=== PATIENT | female | born 1990 | race African-American/Black ===

== ENCOUNTER 2024-08-04 21:46 | Emergency (ER) | payer MEDICAID ==
[~2024-08-04] VITALS: Ht 162.6 cm; Wt 112.0 kg
[2024-08-04 22:28] VITALS: O2SAT 100
[2024-08-05 00:28] LABS: BASOPHILS % 0.6 % (0.0-2.0); DIFFERENTIAL COMMENT 0; EOSINOPHILS % 3.6 % (0.0-5.0); HEMATOCRIT. 34.5 % (36.0-48.0); LYMPHOCYTES % 31.3 % (20.0-50.0); MEAN CORPUSCULAR HEMOGLOBIN 22.8 pg (28.0-32.0); MEAN CORPUSCULAR HGB CONC 31.9 g/dL (31.0-37.0); MEAN CORPUSCULAR VOLUME 71.4 fL (81.0-99.0); MEAN PLATELET VOLUME 7.4 fl (7.4-10.4); MONOCYTES % 13.7 % (2.0-8.0); NEUTROPHILS % 50.8 % (40.0-76.0); PLATELET 231 x1000/uL (130-400); RED BLOOD CELL COUNT 4.83 mill/uL (4.2-5.4); WHITE BLOOD COUNT 4.4 x1000/uL (4.5-11.0)
[2024-08-05 00:40] LABS: CHLORIDE 109 mEq/L (98-107); POTASSIUM 3.8 mEq/L (3.5-5.1); SODIUM 141 mEq/L (136-145)
[2024-08-05 00:41] LABS: CALCIUM 9.3 mg/dL (8.7-10.4); CARBON DIOXIDE 28 mEq/L (21-32)
[2024-08-05 00:46] LABS: CREATININE 0.9 mg/dL (0.6-1.0); GLUCOSE 88 mg/dL (70-105); UREA NITROGEN BLOOD 7 mg/dL (9-23)
[2024-08-05] MEDS: ACETAMINOPHEN 325MG TABLET PO ONE (01:15)
[2024-08-05] MEDS: ONDANSETRON HCL 4MG TABLET PO ONE (01:15)
[2024-08-05 01:35] LABS: ALANINE AMINOTRANSFERASE 22 IU/L (10-49); ALBUMIN 4.2 g/dL (3.2-4.8); ASPARTATE AMINOTRANSFERASE 24 IU/L (<34); BILIRUBIN TOTAL 0.2 mg/dL (0.1-1.0); PROTEIN TOTAL 7.1 g/dL (6.0-8.3)
[2024-08-05 01:39] LABS: BILIRUBIN DIRECT < 0.1 mg/dL (<=3.0)
[2024-08-05] MEDS ORDERED: FAMO-135 MT (02:48)
[2024-08-05 02:50] LABS: CLARITY URINE CLEAR (CLEAR); COLOR URINE YELLOW (YELLOW); GLUCOSE URINE NEGATIVE (NEGATIVE); KETONES URINE NEGATIVE (NEGATIVE); LEUKOCYTE ESTERASE URINE NEGATIVE (NEGATIVE); NITRITE URINE NEGATIVE (NEGATIVE); OCCULT BLOOD URINE NEGATIVE (NEGATIVE); PROTEIN URINE NEGATIVE (NEGATIVE); SPECIFIC GRAVITY URINE 1.024 (1.005-1.030); UROBILINOGEN URINE 0.2 E.U./dL (0.2-1.0)
[2024-08-05 03:07] VITALS: BP 127/88; PULSE 67; RESP 18; TEMP 37.00296; O2SAT 100
== END 2024-08-05 03:09 | disposition home or self-care (01) ==
LOC: ER 21:46
DX: K29.70 Gastritis, unspecified, without bleeding (principal)
CPT/HCPCS: 99283; 80076; 80048; 81025; 85025; 36415; 81003; Q0162

== ENCOUNTER 2024-12-11 16:44 | Emergency (ER) | payer MEDICAID, OTHER ==
[~2024-12-11] VITALS: Ht 162.6 cm; Wt 132.0 kg
[~2024-12-11 16:44] MED LIST: FAMO-135 MT
[2024-12-11 16:45] VITALS: O2SAT 100
[2024-12-11 16:49] VITALS: BP 158/101; RESP 18; TEMP 37; O2SAT 99
[2024-12-11 18:32] VITALS: PULSE 102
== END 2024-12-11 18:42 | disposition home or self-care (01) ==
LOC: ER 16:44
DX: H92.02 Otalgia, left ear (principal); H91.92 Unspecified hearing loss, left ear
CPT/HCPCS: 99282

== ENCOUNTER 2025-08-01 13:44 | Emergency (ER) | payer MEDICAID ==
[~2025-08-01] VITALS: Ht 172.7 cm; Wt 110.0 kg
[2025-08-01 13:51] VITALS: O2SAT 100
[2025-08-01 17:02] LABS: CLARITY URINE CLEAR (CLEAR); COLOR URINE YELLOW (YELLOW); GLUCOSE URINE NEGATIVE (NEGATIVE); KETONES URINE NEGATIVE (NEGATIVE); LEUKOCYTE ESTERASE URINE NEGATIVE (NEGATIVE); NITRITE URINE NEGATIVE (NEGATIVE); OCCULT BLOOD URINE NEGATIVE (NEGATIVE); PH URINE 5.5 (4.5-8.0); PROTEIN URINE NEGATIVE (NEGATIVE); SPECIFIC GRAVITY URINE 1.020 (1.005-1.030); UROBILINOGEN URINE 0.2 E.U./dL (0.2-1.0)
[2025-08-01 17:11] LABS: *AMPHETAMINES SCREEN URINE NEGATIVE (NEGATIVE); *BARBITURATES SCREEN URINE NEGATIVE (NEGATIVE); *BENZODIAZEPINES SCREEN URINE NEGATIVE (NEGATIVE); *COCAINE SCREEN URINE NEGATIVE (NEGATIVE); METHADONE URINE SCREEN NEGATIVE (NEGATIVE); OPIATES URINE SCREEN NEGATIVE (NEGATIVE); PHENCYCLIDINE URINE SCREEN NEGATIVE (NEGATIVE)
[2025-08-01 17:12] LABS: CANNABINOID URINE SCREEN NEGATIVE (NEGATIVE); ECSTASY MDMA SCREEN URINE NEGATIVE (NEGATIVE)
[2025-08-01 17:44] LABS: BASOPHILS % 1.0 % (0.0-2.0); EOSINOPHILS % 3.3 % (0.0-5.0); HEMATOCRIT. 37.8 % (36.0-48.0); HEMOGLOBIN. 12.0 g/dL (12.0-16.0); LYMPHOCYTES % 24.3 % (20.0-50.0); MEAN PLATELET VOLUME 7.7 fl (7.4-10.4); MONOCYTES % 8.2 % (2.0-8.0); NEUTROPHILS % 63.2 % (40.0-76.0); PLATELET 283 x1000/uL (130-400); RED BLOOD CELL COUNT 5.21 mill/uL (4.2-5.4); RED CELL DISTRIBUTION WIDTH 16.1 % (11.6-14.6)
[2025-08-01 18:03] LABS: CREATININE 0.7 mg/dL (0.6-1.0); UREA NITROGEN BLOOD 7 mg/dL (9-23)
[2025-08-01 18:04] LABS: TROPONIN I HIGH SENSITIVITY 12 ng/L (3.0-34)
[2025-08-01 18:05] LABS: ASPARTATE AMINOTRANSFERASE 14 IU/L (<34); BILIRUBIN DIRECT < 0.1 mg/dL (<=3.0); BILIRUBIN TOTAL 0.3 mg/dL (0.1-1.0); PROTEIN TOTAL 7.1 g/dL (6.0-8.3)
[2025-08-01 18:10] LABS: HCG SCREEN NEGATIVE
[2025-08-01 19:32] VITALS: BP 154/106; PULSE 100; RESP 15; TEMP 36.9; O2SAT 100
== END 2025-08-01 19:35 | disposition home or self-care (01) ==
LOC: ER 13:44
DX: D64.9 Anemia, unspecified (principal); I10 Essential (primary) hypertension; Z79.899 Other long term (current) drug therapy
CPT/HCPCS: 36415; 80048; 80076; 80305; 80320; 81003; 81025; 83735; 84484; 84703; 85025; 93005; 99284; G0480